=== PATIENT | male | born 1945 | race Caucasian/White ===

== ENCOUNTER → 2016-12-04 | Outpatient (CLI) | payer OTHER ==
[~2016-12-04] MED LIST: ACET-1311 PO; ADVIN25050 INH; ALL100 PO; ASPI81TA28 PO; ATOR-24 PO; B-COCAP2 PO; CLC100 PO; CLOB-65 TOP; FAMO20TA11 PO; INSDGI SC; INSDGIPEN SQ; IPRA1AER2 INH; LATA0.009 OPB; LIDO2SOL17; LSX40 PO; NTRGSL/4 UT; NVLG SQ; ONDA4TAB46 PO; OXYC1TAB3 PO; PANT40TA PO; SENN-61 PO; SEVE800T PO; aranesp SQ; venofer IV; vitamin d2 PO
[2016-12-04 18:13] LABS: CHOLESTEROL/HDL RATIO 2.1
[2016-12-05 04:53] LABS: ESTIMATED AVERAGE GLUCOSE 128 mg/dl; HA1C FLAG Normal (Normal)
== END | disposition home or self-care (01) ==
LOC: C.LABMFLN 09:10
PROVIDERS: ATTEND Family Medicine
DX: I10 Essential (primary) hypertension (principal); E11.22 Type 2 diabetes mellitus with diabetic chronic kidney disease